=== PATIENT | male | born 1955 | race Caucasian/White ===

== ENCOUNTER 2024-02-12 13:40 | Observation (INO) | payer OTHER, SELFPAY ==
[2024-02-12 13:54] VITALS: BP 113/70; PULSE 65; RESP 18; TEMP 36.6; O2SAT 97; BMI 32.1
--- NOTE | 2024-02-12 15:59 | ED_ITS ---
HPI - Neck Pain/Injury General Time Seen by Provider: 15:59 Date Seen: 02/12/24 Chief Complaint: Neck Injury/Pain Stated Complaint: Stiffness in neck Time Seen by Provider: 02/12/24 15:56 Source: patient and RN notes reviewed Mode of arrival: ambulatory Limitations: no limitations History of Present Illness HPI Narrative: This 69-year-old male with underlying Parkinson's is coming into the ER with neck pain. It is primarily on his left side and goes into the left head. He states the top of the scalp has maybe a numb tingly feeling to it at times. He did fall about 2 weeks ago but current symptoms did not start until about 3 days ago. He states he can no longer turn his head, had significant difficulty trying to sit up out of bed as it hurt in his neck to sit up. Pain is not going into his arms, no numbness tingling into his arms, no pain radiating into his arms. He states it even hurts to put on his baseball cap. He has not noticed a rash, he has had no fevers or chills, no night sweats. He does ambulate with a walker. They do tell me that they need to leave by 530, I am seen him at 4:00 a.m. at the beginning of my shift. There was significant volume and acuity in the ED, longer wait times at this moment. Have reviewed with them that I will do what I can but I do not no that I will have him out of here at 5:30 a.m.. They want to know if he stays, his can come pick him up in the morning. Reviewed with them that I cannot give them any indication at this time, if he does not meet criteria for any admission, will not need to stay. He notes his appetite has been down, no nausea or vomiting just not hungry. His states he is really not eating right now. He denies any abdominal pain. He is drinking water but she states he will often have T your milk during the day and is just really drinking water. He feels he is drinking adequate water in there is no issue with that. He states he is just not hungry. complaint: neck pain Related Data Home Medications ?Medication ?Instructions ?Recorded ?Confirmed acyclovir 400 mg tablet mg PO 02/12/24 amlodipine 10 mg tablet 10 mg PO DAILY 02/12/24 02/12/24 bupropion HCl 300 mg 24 hr tablet, 300 mg PO DAILY 02/12/24 02/12/24 extended release carbidopa 25 mg-levodopa 100 mg tab PO 02/12/24 tablet cyanocobalamin (vitamin B-12) 1,000 mcg PO DAILY 02/12/24 02/12/24 1,000 mcg tablet escitalopram oxalate 10 mg tablet 10 mg PO DAILY 02/12/24 02/12/24 furosemide 20 mg tablet mg PO 02/12/24 omeprazole 40 mg capsule,delayed 40 mg PO DAILY 02/12/24 02/12/24 release propranolol 120 mg capsule,24 120 mg PO DAILY 02/12/24 02/12/24 hr,extended release rosuvastatin 20 mg tablet 20 mg PO QPM 02/12/24 02/12/24 Allergies Allergy/AdvReac Type Severity Reaction Status Date / Time ramipril Allergy Severe Anaphylaxis Verified 02/12/24 19:15 Review of Systems Status of ROS: Reports: 6 or more systems reviewed and unremarkable except as noted in History and below [facility] Medical History (Updated 02/12/24 @ 20:31 by Feroz Estrada MD) Depression ?F32.A - Depression, unspecified (ICD-10) Alcohol use disorder ?F10.90 - Alcohol use, unspecified, uncomplicated (ICD-10) Coronary artery disease ?I25.10 - Atherosclerotic heart disease of [place] coronary artery without angina pectoris (ICD-10) Herpes keratitis of left eye ?B00.52 - Herpesviral keratitis (ICD-10) Sleep apnea ?G47.30 - Sleep apnea, unspecified (ICD-10) TIA (transient ischemic attack) ?G45.9 - Transient cerebral ischemic attack, unspecified (ICD-10) Hyperlipidemia ?E78.5 - Hyperlipidemia, unspecified (ICD-10) Hypertension ?I10 - Essential (primary) hypertension (ICD-10) Parkinson's disease ?G20.A1 - Parkinson's disease without dyskinesia, without mention of fluctuations (ICD-10) Surgical History (Updated 02/12/24 @ 20:21 by Feroz Estrada MD) History of esophagogastroduodenoscopy (EGD) ?Z98.890 - Other specified postprocedural states (ICD-10) Family History (Updated 10/25/24 @ 20:21 by Feroz Estrada MD) Mother High blood pressure Father High blood pressure Social History (Updated 02/12/24 @ 20:23 by Feroz Estrada MD) Narrative: He lives with his . is healthcare power of assistant city attorney. He is a former smoker having quit about 5 years ago he reports drinking alcohol approximately 2-3 drinks per day until about 2 weeks ago when he quit with the recommendation of his . Code status is DNR What is your current living situation?: I presently have a place to live Problems where you live: no known problems Problems where you live details: None In the past 12 months, utilities in danger of being shut off: no In past 12 months, lack of transportation kept you from medical appts, meetings, work, or getting things needed for daily living: no In the past 12 mos, have been you worried that your food would run out before you had money to buy more?: never true In the past 12 mos, the food you bought just didn't last and you didn't have money to buy more?: never true Highest level of school completed/degree received: high school graduate Smoking Status: Former smoker What tobacco products do you use: cigars Do you use any of these nicotine containing products: None Second hand tobacco smoke exposure: No How often do you have a drink containing alcohol: never How often do you have six or more drinks on one occasion: Never AUDIT-C Alcohol total score: 0 Non-prescribed substance use: denies use Caffeine: No How often does anyone, including family, friends and others, physically hurt you : never How often does anyone, including family, friends and others, insult or talk down to you: never How often does anyone, including family, friends and others, threaten you with harm: never How often does anyone, including family, friends and others, scream or curse at you: never service: No Exam Const: Vital Signs, click to edit/add: Vital Signs - 24 hr 02/12/24 13:54 Temperature 97.8 F Pulse Rate [Pulse Oximeter] 65 Respiratory Rate 18 Blood Pressure [Ri ght Upper Arm] 113/70 Pulse Oximetry 97 Oxygen Delivery Me thod Room Air This 69-year-old male is alert, interactive, no apparent distress. He is sitting up in the bed in exam room 1. Pupils are equal round reactive, sclera clear, symmetrical facial function. Speech is normal, maybe slower but certainly succinct and able to speak in complete sentences. He has no midline tenderness of his neck, does not want to rotate or flex or extend his neck at all. He has some tenderness over the left occipital ridge, none on the right. There does not seem to be significant paraspinous tenderness in the cervical spine. Certainly has no neck masses, no adenopathy. He does complain of pain when I palpate along his sternocleidomastoid muscles on both sides. His strength in his upper arms through the shoulders, elbows and hands is 5/5 and symmetric. Normal light touch sensation. He does have 1 beat of clonus bilaterally at the wrist/hands. He does have a flapping type tremor in his hands when I have him hold his arms outstretched. CV regular rate and rhythm, no murmur, normal S1-S2, no S3-S4. Lungs are clear, no tachypnea, no wheezing or crackles. Abdomen is soft, nontender, nondistended, no organomegaly, no rebound or guarding, no masses noted. Did inspect his scalp, see no rash, on palpation of his scalp he does not have any paresthesias or dysesthesias. Documenting provider has reviewed patient's vital signs: yes Course Course ED Course: This 69-year-old male with underlying Parkinson's and remote fall is coming in with increasing neck pain. With a being left-sided, pain over the occipital ridge in pain going into the head, occipital neuralgia does seem to be a possibility. He has fallen remotely, do think we need to do head and neck imaging with CT imaging. He has no pain going into his arms, does not seem to be a radiculopathy. He is on a cholesterol medicine, will get a baseline screening CK. He is also complaining of decreased appetite, could have an underlying subtle viral syndrome going on. We will get full complement of labs into the CT imaging. Reevaluation(s) Time of Reevaluation #1: 17:29 Reevaluation #1: Spoke with patient and his . Reviewed that the head CT and neck CT are showing no acute traumatic change, no acute findings. There are degenerative changes including in the cervical spine. Patient has not really tried any Tylenol at all for this. He did try some ice at 1 point. We did review that his glucose is 266 which qualifies him for diabetes. He has been told he was prediabetic, he remembers being on metformin at 1 point, is not sure why he isn't any longer. His kidney function looks reasonable to initiate this. He would consider this. Time of Reevaluation #2: 17:48 Reevaluation #2: Sed rate has come back elevated at 82, C reactive protein at 8.7. Patient denies any visual changes but on further questioning about eating, he does admit that he had some right jaw pain, does not think it was just in his teeth when he recently tried to eat. This is concerning for potential jaw claudication. Given that this might be polymyalgia rheumatica, recommend initiation of steroids which is likely going to causes havoc with sugars and patient has no diabetic management at this point. Did call and talk to our hospitalist Dr. Estrada. He does agree to take this patient. I think it is prudent. Patient's noted that when she attempted to just get him up to get his shirt on, she had ask for assistance as he was screaming out in pain. Will initiate some Tylenol, see if scheduled Tylenol and initiation of 20 mg of prednisone will help with his symptoms. Dr. Estrada will address his diabetes. We did discuss muscle relaxants but there are interactions that can happen based on age as well as with his Parkinson's and his Parkinson's medications. Using Zanaflex with his Sinemet can increase somnolence, confusion, dizziness. This certainly could increase risk of falls in somebody that is already at a heightened risk due to his Parkinson's. Likewise narcotic pain medicines could potentiate his fall risk. I think it is prudent to put this patient in the hospital, work on pain management if needed and initiate diabetic treatment. Vital Signs Vital signs: Initial Vital Signs Temperature 97.8 F 02/12/24 13:54 Temperature Source Temporal Artery Scan 02/12/24 13:54 Pulse Rate 65 02/12/24 13:54 Respiratory Rate 18 02/12/24 13:54 Blood Pressure 113/70 02/12/24 13:54 Blood Pressure Mean 84 02/12/24 13:54 Blood Pressure Position Sitting 02/12/24 13:54 Pulse Oximetry 97 02/12/24 13:54 Oxygen Delivery Method Room Air 10/25/24 13:54 Vital Signs Temperature 97.8 F 02/12/24 13:54 Pulse Rate 65 02/12/24 13:54 Respiratory Rate 18 02/12/24 13:54 Blood Pressure 113/70 02/12/24 13:54 Pulse Oximetry 97 02/12/24 13:54 Oxygen Delivery Method Room Air 02/12/24 13:54 Temperature 98.2 F 02/12/24 23:00 Pulse Rate 74 02/12/24 23:00 Respiratory Rate 16 02/12/24 23:00 Blood Pressure 127/70 02/12/24 23:00 Pulse Oximetry 97 02/12/24 23:00 Oxygen Delivery Method Room Air 02/12/24 23:00 Medications Administered Medications: Generic Name Dose Route Start Last Admin Trade Name Freq PRN Reason Stop Dose Admin Acyclovir 400 mg 02/12/24 21:00 02/12/24 21:01 Acyclovir 200 Mg Capsule PO 400 mg BID RUDDY Administration Carbidopa/Levodopa 2 tab 02/12/24 21:00 02/12/24 21:01 Carbidopa-Levodopa 25-100 Tablet PO 2 tab QID RUDDY Administration Ibuprofen 400 mg 02/12/24 18:28 02/12/24 19:43 Ibuprofen 400 Mg Tablet PO 400 mg Q4H PRN Administration Insulin Aspart 0 unit 02/12/24 21:00 02/12/24 21:03 Insulin Aspart 100 Unit/Ml SUBCUT 6 unit ACHS RUDDY Administration Protocol Metformin HCl 500 mg 02/12/24 18:35 02/12/24 19:44 Metformin Er 500 Mg PO 500 mg BIDWM RUDDY Administration Sodium Chloride 5 ml 02/12/24 21:00 02/12/24 21:09 Sodium Chloride 0.9 % (Flush) 10 Ml Syringe IVF Not Given BID RUDDY Discontinued Medications Generic Name Dose Route Start Last Admin Trade Name Freq PRN Reason Stop Dose Admin Acetaminophen 1,000 mg 02/12/24 17:42 02/12/24 17:48 Acetaminophen 500 Mg Tablet PO 02/12/24 17:43 1,000 mg ONCE ONE Administration Prednisone 20 mg 02/12/24 17:42 02/12/24 17:48 Prednisone 20 Mg Tablet PO 02/12/24 17:43 20 mg ONCE ONE Administration MDM - Neck Pain/Injury Lab Data Attestation: I reviewed the patient's lab results. Labs: Lab Results 02/12/24 Range/Units 16:24 WBC 11.76 H (4.50-11.00) K/uL RBC 4.14 L (4.30-5.90) m/uL Hgb 12.3 L (13.5-17.5) gm/dL Hct 39.2 (37.0-53.0) % MCV 95 (80-100) fL MCH 30 (26-34) pg MCHC 31 L (32-36) gm/dL RDW Coeff of Javid 16.4 H (11.5-15.5) % Plt Count 253 (140-440) K/uL Neut % (Auto) 69.1 (42.0-72.0) % Lymph % (Auto) 16.1 L (20-44) % [place] % (Auto) 13.4 H (0.0-11.0) % Eos % (Auto) 0.9 (0.0-7.0) % Baso % (Auto) 0.1 (0.0-3.0) % Neut # (Auto) 8.10 H (1.7-7.0) K/uL Lymph # (Auto) 1.90 (0.90-2.90) K/uL [place] # (Auto) 1.60 H (0.00-0.90) K/UL Eos # (Auto) 0.10 (0.00-0.50) K/uL Baso # (Auto) 0.00 (0.00-0.30) K/uL Abs Immat Gran (auto) 0.00 (0.00-0.30) K/uL Imm/Tot Granulo (auto) 0.4 % ESR 82 H (2-15) mm/hr Sodium 136 (135-149) mmol/L Potassium 4.6 (3.6-5.1) mmol/L Chloride 95 L (96-114) mmol/L Carbon Dioxide 29 (20-32) mmol/L Anion Gap 12 (7-15) mEq/L BUN 16 (7-30) mg/dL Creatinine 1.0 (0.5-1.5) mg/dL Estimated Creat Clear 82.20 Estimated GFR 82 ml/min Glucose 266 H (60-115) mg/dL Calcium 10.2 (8.4-10.6) mg/dL Total Bilirubin 1.0 (0.1-1.5) mg/dL AST 22 (12-35) U/L ALT 10 (4-50) U/L Alkaline Phosphatase 98 (40-150) U/L Total Creatine Kinase 54 (54-186) U/L C-Reactive Protein 8.7 H (0.5-1.0) mg/dL Total Protein 9.0 H (6.0-8.3) g/dL Albumin 4.7 (3.3-5.0) g/dL Imaging Data CT scan - head: Attestation: I have reviewed the pertinent imaging results. Radiologist's impression: Patient: DINESH MCCLELLAN Facility:?[facility] Patient ID:?[id number] Site Patient ID:?[id number]. Site :?[id number] Study:?CT-Head w/o-02/12/2024 4:52:19 PM Ordering Physician:Magalys Mix Final Report: INDICATION: Left-sided head pain. TECHNIQUE: Head CT without contrast. COMPARISON: None. FINDINGS: CSF spaces: Cmnh-[id number]-etooozem diffuse parenchymal volume loss with commensurate ex vacuo dilatation of the ventricles and sulci. Brain parenchyma and extra-axial spaces: There are nonspecific low attenuation white matter changes consistent with chronic microvascular disease. No sign of mass, hemorrhage, or midline shift. Skull base and calvarium: The visualized paranasal sinuses and mastoid air cells demonstrate no acute or significant findings. The visualized orbits are grossly unremarkable. No skull fractures. IMPRESSION: No acute findings. Please note that all CT scans at this facility use dose modulation, iterative reconstruction, and/or weight-based dosing when appropriate to reduce radiation dose to as low as reasonably achievable. Dictated by Ramos Salomon MD @ 02/12/2024 5:13:04 PM (Electronic Signature) CT cervical spine: Attestation: I have reviewed the pertinent imaging results. Radiologist's impression: Patient: DINESH MCCLELLAN Facility:?[facility] RIS Patient ID:?[id number] Site Patient ID:?[id number]. Site :?[id number] Study:?CT-Spine Cervical W/O-02/12/2024 4:52:00 PM Ordering Physician:Magalys Mix Final Report: INDICATION: left neck pain, goes into left head, pain with movement. TECHNIQUE: CT cervical spine without contrast. COMPARISON: None. FINDINGS: Vertebrae: Alignment is normal. Straightened cervical lordosis. There are no fractures or suspicious bony lesions. Discs and facet joints: There are degenerative disc changes most severe at C5-6 and C6-7 with bulky bridging anterior osteophytosis. There are multilevel degenerative changes in the facets. Extraspinal findings: Paraspinous soft tissues are unremarkable. IMPRESSION: 1. No sign of acute injury. 2. Multilevel degenerative spondylosis. Please note that all CT scans at this facility use dose modulation, iterative reconstruction, and/or weight-based dosing when appropriate to reduce radiation dose to as low as reasonably achievable. Dictated by Ramos Salomon MD @ 02/12/2024 5:07:19 PM (Electronic Signature) Discharge Plan Discharge Clinical Impression: Acquired torticollis, Parkinson's disease, Type 2 diabetes mellitus Patient Disposition: Admitted As Observation
--- NOTE | 2024-02-12 16:06 | CRLHL7_ITS ---
For Patients: As a result of the Century Cures Act, medical imaging exams and procedure reports are released immediately into your electronic medical record. You may view this report before your referring provider. If you have questions, please contact your health care provider. INDICATION: Left-sided head pain. TECHNIQUE: Head CT without contrast. COMPARISON: None. FINDINGS: CSF spaces: [id number]-bk-ergyebeg diffuse parenchymal volume loss with commensurate ex vacuo dilatation of the ventricles and sulci. Brain parenchyma and extra-axial spaces: There are nonspecific low attenuation white matter changes consistent with chronic microvascular disease. No sign of mass, hemorrhage, or midline shift. Skull base and calvarium: The visualized paranasal sinuses and mastoid air cells demonstrate no acute or significant findings. The visualized orbits are grossly unremarkable. No skull fractures. IMPRESSION: No acute findings. Please note that all CT scans at this facility use dose modulation, iterative reconstruction, and/or weight-based dosing when appropriate to reduce radiation dose to as low as reasonably achievable. Dictated by Ramos Salomon MD @ 02/12/2024 5:13:04 PM (Electronically Signed)
--- NOTE | 2024-02-12 16:07 | CRLHL7_ITS ---
For Patients: As a result of the Century Cures Act, medical imaging exams and procedure reports are released immediately into your electronic medical record. You may view this report before your referring provider. If you have questions, please contact your health care provider. INDICATION: left neck pain, goes into left head, pain with movement. TECHNIQUE: CT cervical spine without contrast. COMPARISON: None. FINDINGS: Vertebrae: Alignment is normal. Straightened cervical lordosis. There are no fractures or suspicious bony lesions. Discs and facet joints: There are degenerative disc changes most severe at C5-6 and C6-7 with bulky bridging anterior osteophytosis. There are multilevel degenerative changes in the facets. Extraspinal findings: Paraspinous soft tissues are unremarkable. IMPRESSION: 1. No sign of acute injury. 2. Multilevel degenerative spondylosis. Please note that all CT scans at this facility use dose modulation, iterative reconstruction, and/or weight-based dosing when appropriate to reduce radiation dose to as low as reasonably achievable. Dictated by Ramos Salomon MD @ 02/12/2024 5:07:19 PM (Electronically Signed)
[2024-02-12 16:30] LABS: Basophils Percent Auto 0.1 % (0.0-3.0); Eosinophils Percent Auto 0.9 % (0.0-7.0); Hematocrit 39.2 % (37.0-53.0); Hemoglobin* 12.3 gm/dL (13.5-17.5); Immature Granulocytes Pct Auto 0.4 %; Lymphocytes Percent Auto 16.1 % (20-44); Mean Corpuscular HGB Conc 31 gm/dL (32-36); Mean Corpuscular Hemoglobin 30 pg (26-34); Mean Corpuscular Volume 95 fL (80-100); Monocytes Percent Auto 13.4 % (0.0-11.0); Neutrophils Percent Auto 69.1 % (42.0-72.0); Platelet Count* 253 K/uL (140-440); RDW Coefficient of Variation % 16.4 % (11.5-15.5); Red Blood Count 4.14 m/uL (4.30-5.90); White Blood Count* 11.76 K/uL (4.50-11.00)
[2024-02-12 16:40] LABS: Slide Review Reflex No
[2024-02-12 16:43] LABS: Chloride* 95 mmol/L (96-114)
[2024-02-12 16:44] LABS: Albumin* 4.7 g/dL (3.3-5.0); Potassium* 4.6 mmol/L (3.6-5.1); Sodium* 136 mmol/L (135-149)
[2024-02-12 16:46] LABS: Estimated Glomerular Filt Rate 82 ml/min
[2024-02-12 16:47] LABS: Alanine Aminotransferase* 10 U/L (4-50); Alkaline Phosphatase* 98 U/L (40-150); Anion Gap 12 mEq/L (7-15); Aspartate Amino Transferase* 22 U/L (12-35); Blood Urea Nitrogen* 16 mg/dL (7-30); Calcium* 10.2 mg/dL (8.4-10.6); Carbon Dioxide* 29 mmol/L (20-32); Creatine Kinase* 54 U/L (54-186); Glucose* 266 mg/dL (60-115)
[2024-02-12 16:50] LABS: C Reactive Protein* 8.7 mg/dL (0.5-1.0)
[2024-02-12 17:19] LABS: Erythrocyte SedimentationRate* 82 mm/hr (2-15)
[2024-02-12] MEDS: predniSONE 20 MG TABLET PO (17:48)
[2024-02-12] MEDS: ACETAMINOPHEN 500 MG TABLET 1000 MG PO (17:48)
[2024-02-12 18:37] VITALS: BP 139/68; PULSE 74; TEMP 36.9; BMI 31.2
[2024-02-12 19:00] VITALS: BP 139/68; PULSE 71; RESP 18; TEMP 36.9; O2SAT 94
[2024-02-12] MEDS: IBUPROFEN 400 MG TABLET PO (19:43)
[2024-02-12] MEDS: METFORMIN ER 500 MG PO (19:44)
--- NOTE | 2024-02-12 20:13 | P.IMHP_ITS ---
Hospitalist- H&P: HPI History of Present Illness Date Seen: 02/12/24 Chief complaint: Stiffness in neck Narrative: Andreas Lema is a 69 year old male with Parkinson's and diabetes admitted through the emergency department with a 3-4 day history of worsening bilateral neck pain. He reports he was in his usual state of health when he started having bilateral neck pain at the base of his posterior neck extending to the base of his posterior skull. He did not have any injury the trigger this. He has not been ill. He has not had a fever, sore throat, headache. No previous history of neck problems. The pain is constant and gradually getting worse over the last few days. Nothing seems to make it better worse. Did not noticed that it was worse in the morning. He has not had any visual disturbance. 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 He does not have jaw claudication. He does report a decreased appetite for last few days. No abdominal pain, nausea, vomiting, diarrhea, blood in his stool Review of Systems Narrative: Review of systems unremarkable except as noted above [facility] Medical History (Updated 02/12/24 @ 20:31 by Feroz Estrada MD) Depression ?F32.A - Depression, unspecified (ICD-10) Alcohol use disorder ?F10.90 - Alcohol use, unspecified, uncomplicated (ICD-10) Coronary artery disease ?I25.10 - Atherosclerotic heart disease of [place] coronary artery without angina pectoris (ICD-10) Herpes keratitis of left eye ?B00.52 - Herpesviral keratitis (ICD-10) Sleep apnea ?G47.30 - Sleep apnea, unspecified (ICD-10) TIA (transient ischemic attack) ?G45.9 - Transient cerebral ischemic attack, unspecified (ICD-10) Hyperlipidemia ?E78.5 - Hyperlipidemia, unspecified (ICD-10) Hypertension ?I10 - Essential (primary) hypertension (ICD-10) Parkinson's disease ?G20.A1 - Parkinson's disease without dyskinesia, without mention of fluctuations (ICD-10) Surgical History (Updated 02/12/24 @ 20:21 by Feroz Estrada MD) History of esophagogastroduodenoscopy (EGD) ?Z98.890 - Other specified postprocedural states (ICD-10) Family History (Updated 02/12/24 @ 20:21 by Feorz Estrada MD) Mother High blood pressure Father High blood pressure Social History (Updated 02/12/24 @ 20:23 by Feroz Estrada MD) Narrative: He lives with his . is healthcare power of attorney general. He is a former smoker having quit about 5 years ago he reports drinking alcohol approximately 2-3 drinks per day until about 2 weeks ago when he quit with the recommendation of his . Code status is DNR What is your current living situation?: I presently have a place to live Problems where you live: no known problems Problems where you live details: None In the past 12 months, utilities in danger of being shut off: no In past 12 months, lack of transportation kept you from medical appts, meetings, work, or getting things needed for daily living: no In the past 12 mos, have been you worried that your food would run out before you had money to buy more?: never true In the past 12 mos, the food you bought just didn't last and you didn't have money to buy more?: never true Highest level of school completed/degree received: high school graduate Smoking Status: Former smoker What tobacco products do you use: cigars Do you use any of these nicotine containing products: None Second hand tobacco smoke exposure: No How often do you have a drink containing alcohol: never How often do you have six or more drinks on one occasion: Never AUDIT-C Alcohol total score: 0 Non-prescribed substance use: denies use Caffeine: No How often does anyone, including family, friends and others, physically hurt you : never How often does anyone, including family, friends and others, insult or talk down to you: never How often does anyone, including family, friends and others, threaten you with harm: never How often does anyone, including family, friends and others, scream or curse at you: never service: No Meds Home Medications and Allergies Home Medications ?Medication ?Instructions ?Recorded ?Confirmed ?Type acyclovir 400 mg tablet mg PO 02/12/24 History amlodipine 10 mg tablet 10 mg PO DAILY 02/12/24 02/12/24 History bupropion HCl 300 mg 24 hr tablet, 300 mg PO DAILY 02/12/24 02/12/24 History extended release carbidopa 25 mg-levodopa 100 mg tab PO 02/12/24 History tablet cyanocobalamin (vitamin B-12) 1,000 mcg PO DAILY 02/12/24 02/12/24 History 1,000 mcg tablet escitalopram oxalate 10 mg tablet 10 mg PO DAILY 02/12/24 02/12/24 History furosemide 20 mg tablet mg PO 02/12/24 History omeprazole 40 mg capsule,delayed 40 mg PO DAILY 02/12/24 02/12/24 History release propranolol 120 mg capsule,24 120 mg PO DAILY 02/12/24 02/12/24 History hr,extended release rosuvastatin 20 mg tablet 20 mg PO QPM 02/12/24 02/12/24 History Allergies Allergy/AdvReac Type Severity Reaction Status Date / Time ramipril Allergy Severe Anaphylaxis Verified 02/12/24 19:15 Exam Narrative: Exam Narrative: He is alert and appears in no distress. He gives his own history. Head is without evidence of trauma. Eyes normal. Oropharynx is normal. There is no facial asymmetry. He has almost no movement in his neck with flexion extension rotation secondary to pain in the back of his neck. Inspection of his neck shows no rash, redness or sign of trauma. Palpation there shows diffusely tender and tight posterior cervical muscles extending from the base of the occiput down to the trapezius muscles bilaterally. Respirations are clear to auscultation. Cardiovascular: S1, S2, regular rate and rhythm. Upper extremities with intact strength, sensation, motion and pulses bilaterally. Abdomen is soft without tenderness or mass. External genitalia normal. Lower extremities with diminished sensation (chronic) and diminished pulses. No erythema. No edema. He moves both lower extremities well. Const: Vital Signs, click to edit/add: Vital Signs - 24 hr 02/12/24 13:54 02/12/24 18:37 Temperature 97.8 F 98.4 F Pulse Rate [Pulse Oximeter] 65 74 Respiratory Rate 18 Blood Pressure [Ri ght Arm] 139/68 Blood Pressure [Ri ght Upper Arm] 113/70 Pulse Oximetry 97 Oxygen Delivery Me thod Room Air Documenting provider has reviewed patient's vital signs: yes Hospitalist - H&P: Result Labs Labs: Short CBC 02/12/24 Range/Units 16:24 WBC 11.76 H (4.50-11.00) K/uL Hgb 12.3 L (13.5-17.5) gm/dL Hct 39.2 (37.0-53.0) % Plt Count 253 (140-440) K/uL BMP 02/12/24 16:24 Sodium 136 Potassium 4.6 Chloride 95 L Carbon Dioxide 29 BUN 16 Creatinine 1.0 Glucose 266 H Calcium 10.2 Cardiac Enzymes 02/12/24 Range/Units 16:24 Total Creatine Kinase 54 (54-186) U/L Liver Function 02/12/24 Range/Units 16:24 Total Bilirubin 1.0 (0.1-1.5) mg/dL AST 22 (12-35) U/L ALT 10 (4-50) U/L Alkaline Phosphatase 98 (40-150) U/L Albumin 4.7 (3.3-5.0) g/dL Imaging CT scan - head: Radiologist's impression: INDICATION: Left-sided head pain. TECHNIQUE: Head CT without contrast. COMPARISON: None. FINDINGS: CSF spaces: [id number] diffuse parenchymal volume loss with commensurate ex vacuo dilatation of the ventricles and sulci. Brain parenchyma and extra-axial spaces: There are nonspecific low attenuation white matter changes consistent with chronic microvascular disease. No sign of mass, hemorrhage, or midline shift. Skull base and calvarium: The visualized paranasal sinuses and mastoid air cells demonstrate no acute or significant findings. The visualized orbits are grossly unremarkable. No skull fractures. IMPRESSION: No acute findings. Cervical spine CT: Radiologist's impression: INDICATION: left neck pain, goes into left head, pain with movement. TECHNIQUE: CT cervical spine without contrast. COMPARISON: None. FINDINGS: Vertebrae: Alignment is normal. Straightened cervical lordosis. There are no fractures or suspicious bony lesions. Discs and facet joints: There are degenerative disc changes most severe at C5-6 and C6-7 with bulky bridging anterior osteophytosis. There are multilevel degenerative changes in the facets. Extraspinal findings: Paraspinous soft tissues are unremarkable. IMPRESSION: 1. No sign of acute injury. 2. Multilevel degenerative spondylosis. Assessment and Plan Assessment and plan (1) Acquired torticollis: Problem comment: Unclear if this is PMR or non inflammatory neck pain. Has underlying degenerative cervical spine disease Status: Acute (2) Parkinson's disease: Status: Acute (3) Type 2 diabetes mellitus: Problem comment: Not currently treated. With prednisone will start metformin and monitor blood sugars Status: Acute (4) PMR (polymyalgia rheumatica): Problem comment: Bilateral neck pain with marked elevation of inflammatory markers suspicious for PMR. No signs or symptoms suggestive of giant cell arteritis. Trial of prednisone Status: Suspected Plan Patient admitted to the hospital for ongoing evaluation of neck pain, possible PMR, diabetes. Anticipate discharge to home tomorrow with close outpatient follow-up depending on clinical course. Total Time Spent Total Time Spent: Total time spent is 60 minutes in coordination of care and discussing with patient and other providers ongoing evaluation management
[2024-02-12] MEDS: CARBIDOPA-LEVODOPA 25-100 TABLET 2 TAB PO (21:01)
[2024-02-12] MEDS: ACYCLOVIR 200 MG CAPSULE 400 MG PO (21:01)
[2024-02-12] MEDS: INSULIN ASPART 100 UNIT/ML SUBCUT (21:03)
--- NOTE | 2024-02-12 22:21 | PC.NURSE ---
Pt arrived on unit at approx. 182. VSS. A&O. On observation for pain and stiffness in neck that started approx. 3 days ago. Rates pain at a 8/10 with change in position and standing up. No IV inserted.
[2024-02-12 23:00] VITALS: BP 127/70; PULSE 74; RESP 16; TEMP 36.8; O2SAT 97
[2024-02-13 03:00] VITALS: BP 126/68; PULSE 71; RESP 16; TEMP 36.2; O2SAT 96
[2024-02-13 06:54] LABS: Basophils Percent Auto 0.1 % (0.0-3.0); Eosinophils Percent Auto 0.1 % (0.0-7.0); Hematocrit 35.4 % (37.0-53.0); Hemoglobin* 11.1 gm/dL (13.5-17.5); Immature Granulocytes Pct Auto 0.2 %; Lymphocytes Percent Auto 14.4 % (20-44); Mean Corpuscular HGB Conc 31 gm/dL (32-36); Mean Corpuscular Hemoglobin 30 pg (26-34); Mean Corpuscular Volume 94 fL (80-100); Monocytes Percent Auto 9.5 % (0.0-11.0); Neutrophils Percent Auto 75.7 % (42.0-72.0); Platelet Count* 234 K/uL (140-440); RDW Coefficient of Variation % 16.2 % (11.5-15.5); Red Blood Count 3.75 m/uL (4.30-5.90); White Blood Count* 11.73 K/uL (4.50-11.00)
[2024-02-13 07:00] VITALS: BP 127/70; PULSE 64; RESP 18; TEMP 36.7; O2SAT 97
[2024-02-13 07:00] LABS: Slide Review Reflex No
[2024-02-13 07:08] LABS: Chloride* 99 mmol/L (96-114)
[2024-02-13 07:09] LABS: Potassium* 3.8 mmol/L (3.6-5.1); Sodium* 137 mmol/L (135-149)
[2024-02-13 07:11] LABS: Creatinine* 0.9 mg/dL (0.5-1.5); Estimated Glomerular Filt Rate 93 ml/min
[2024-02-13 07:12] LABS: Anion Gap 12 mEq/L (7-15); Blood Urea Nitrogen* 17 mg/dL (7-30); Calcium* 9.6 mg/dL (8.4-10.6); Carbon Dioxide* 26 mmol/L (20-32); Glucose* 248 mg/dL (60-115)
[2024-02-13 07:27] LABS: C Reactive Protein* 14.3 mg/dL (0.5-1.0)
--- NOTE | 2024-02-13 08:17 | PC.NURSE ---
Shift note ([id number]): Patient pleasant, alert and oriented. Remained in bed all shift and slept well during night. Denied pain. ?
[2024-02-13] MEDS: CARBIDOPA-LEVODOPA 25-100 TABLET 2 TAB PO ×2 (09:08→13:07)
[2024-02-13] MEDS: OMEPRAZOLE 20 MG CAPSULE DR 40 MG PO (09:09)
[2024-02-13] MEDS: predniSONE 20 MG TABLET PO (09:09)
[2024-02-13] MEDS: glipiZIDE XL 5 MG TAB PO (09:09)
[2024-02-13] MEDS: METFORMIN ER 500 MG PO (09:09)
[2024-02-13] MEDS: FUROSEMIDE 20 MG TABLET PO (09:10)
[2024-02-13] MEDS: IBUPROFEN 400 MG TABLET PO (09:11)
[2024-02-13] MEDS: buPROPion XL 150 MG TABLET 300 MG PO (09:11)
[2024-02-13] MEDS: AMLODIPINE 10 MG TABLET PO (09:11)
[2024-02-13] MEDS: CYANOCOBALAMIN (VITAMIN B-12) 500 MCG TABLET 1000 MCG PO (09:11)
[2024-02-13] MEDS: ACYCLOVIR 200 MG CAPSULE 400 MG PO (09:13)
[2024-02-13] MEDS: ESCITALOPRAM 10 MG TABLET 5 MG PO (09:22)
[2024-02-13] MEDS: INSULIN ASPART 100 UNIT/ML SUBCUT ×2 (09:26→13:03)
[2024-02-13] MEDS: SENNOSIDES/DOCUSATE TABLET PO (09:26)
[2024-02-13 11:00] VITALS: BP 115/61; PULSE 67; RESP 16; TEMP 36.6; O2SAT 95
[2024-02-13 11:05] LABS: Appearance Urine Clear (Clear); Bilirubin Urine Negative (Negative); Blood Urine Negative (Negative); Color Urine Dark yellow (Yellow); Glucose Urine 2+ (Negative); Ketones Urine Negative (Negative); Leukocyte Esterase Urine Negative (Negative); Nitrite Urine Negative (Negative); Protein Urine 2+ (Negative); Specific Gravity Urine >= 1.030 (1.000-1.030)
[2024-02-13 11:16] LABS: RBC Urine 0-2 (0-2); WBC Urine 0-2 (0-5)
[2024-02-13 11:17] LABS: Mucus Urine Few; Squamous Epithelial Cell Urine Few (None-Few)
--- NOTE | 2024-02-13 13:37 | P.DS_ITS ---
DS: Providers Provider Date Seen: 02/13/24 Date of admission: 02/12/24 18:10 Primary care physician: SOLOMON Baker Admitting Clinician: Feroz Estrada MD Attending Physician on discharge: Feroz Estrada MD Date of Discharge: 02/13/24 DS: Diagnosis Discharge Diagnosis (1) Acquired torticollis: Status: Acute Problem details: Unclear if this is PMR or non inflammatory neck pain. Has underlying degenerative cervical spine disease (2) PMR (polymyalgia rheumatica): Status: Suspected Problem details: Bilateral neck pain with marked elevation of inflammatory markers suspicious for PMR. No signs or symptoms suggestive of giant cell arteritis. Trial of prednisone (3) Type 2 diabetes mellitus: Status: Acute Problem details: Not currently treated. With prednisone will start metformin and monitor blood sugars (4) Parkinson's disease: Status: Acute (5) Alcohol use disorder: Status: Acute Problem details: History of excessive alcohol use. He reports his made him stop drinking about 2 weeks ago after he fell at home DS: Summary Hospital Course Hospital Course: 69-year-old male admitted to the hospital with bilateral posterior neck pain for 3-4 days prior to admission. No other symptoms of illness. At the time of admission he was noted to have elevated inflammatory markers. His clinical presentation and inflammatory markers suggested possible polymyalgia rheumatica. No signs or symptoms of temporal arteritis/GCA. Started on prednisone 20 mg yesterday. Because of concomitant diabetes he was admitted to the hospital so blood sugars could be monitored well initiating prednisone. Overnight he had moderate improvement in his pain in his neck. He has had improvement in the range of motion that he can do in his neck and improvement in the tenderness over his posterior neck. Blood sugars have been moderately elevated with the addition of metformin ER 1000 mg daily and glipizide ER 5 mg daily. He will be discharged to home with his today. I have discharged him with a prescription for a glucose monitor so we can do monitoring at home for his diabetes. I have continued his same home medications with the addition of prednisone 15 mg daily, glipizide 5 mg daily and metformin 1000 mg daily to address his hyperglycemia. He will need follow-up in the next week to reassess management is diabetes and his neck pain. Consider further evaluation for polymyalgia rheumatica verses torticollis of other causes for ongoing treatment. Time Spent with Patient Time attestation: Total time spent providing and/or coordinating discharge services: 40 minutes Exam Narrative: Exam Narrative: He is alert in no distress. Range of motion is neck is improved from essentially no motion yesterday to about 20? of lateral rotation in both directions 30? of forward flexion and extension. Palpation shows significant improvement in the tenderness over his posterior cervical spine, paraspinal muscles. Const: Vital Signs, click to edit/add: Vital Signs - 24 hr 02/12/24 13:54 02/12/24 18:37 02/12/24 19:00 Temperature 97.8 F 98.4 F 98.4 F Pulse Rate [Pulse Oximeter] 65 74 71 Respiratory Rate 18 18 Blood Pressure [Ri ght Arm] 139/68 139/68 Blood Pressure [Ri ght Upper Arm] 113/70 Pulse Oximetry 97 94 Oxygen Delivery Me thod Room Air Room Air 02/12/24 23:00 02/13/24 03:00 02/13/24 07:00 Temperature 98.2 F 97.1 F L 98.1 F Pulse Rate [Pulse Oximeter] 74 71 64 Respiratory Rate 16 16 18 Blood Pressure [Ri ght Arm] 127/70 126/68 127/70 Blood Pressure [Ri ght Upper Arm] Pulse Oximetry 97 96 97 Oxygen Delivery Me thod Room Air Room Air Room Air 02/13/24 07:00 02/13/24 11:00 Temperature 97.9 F Pulse Rate [Pulse Oximeter] 64 67 Respiratory Rate 18 16 Blood Pressure [Ri ght Arm] 115/61 Blood Pressure [Ri ght Upper Arm] Pulse Oximetry 95 Oxygen Delivery Me thod Room Air Documenting provider has reviewed patient's vital signs: yes DS: Data Data Completed and Pending Labs on day of discharge: Labs from last 24 hours 02/13/24 02/13/24 02/12/24 10:56 05:34 16:24 WBC 11.73 H 11.76 H RBC 3.75 L 4.14 L Hgb 11.1 L 12.3 L Hct 35.4 L 39.2 MCV 94 95 MCH 30 30 MCHC 31 L 31 L RDW Coeff of Javid 16.2 H 16.4 H Plt Count 234 253 Neut % (Auto) 75.7 H 69.1 Lymph % (Auto) 14.4 L 16.1 L [place] % (Auto) 9.5 13.4 H Eos % (Auto) 0.1 0.9 Baso % (Auto) 0.1 0.1 Neut # (Auto) 8.90 H 8.10 H Lymph # (Auto) 1.70 1.90 [place] # (Auto) 1.10 H 1.60 H Eos # (Auto) 0.00 0.10 Baso # (Auto) 0.00 0.00 Abs Immat Gran (auto) 0.00 0.00 Imm/Tot Granulo (auto) 0.2 0.4 ESR 82 H Sodium 137 136 Potassium 3.8 4.6 Chloride 99 95 L Carbon Dioxide 26 29 Anion Gap 12 12 BUN 17 16 Creatinine 0.9 1.0 Estimated Creat Clear 82.20 82.20 Estimated GFR 93 82 Glucose 248 H 266 H Calcium 9.6 10.2 Total Bilirubin 1.0 AST 22 ALT 10 Alkaline Phosphatase 98 Total Creatine Kinase 54 C-Reactive Protein 14.3 H 8.7 H Total Protein 9.0 H Albumin 4.7 Urine Color Dark yellow Urine Appearance Clear Urine pH 6.0 Ur Specific [place] >= 1.030 Urine Protein 2+ A Urine Glucose (UA) 2+ A Urine Ketones Negative Urine Blood Negative Urine Nitrite Negative Urine Bilirubin Negative Urine Urobilinogen 2.0 A Ur Leukocyte Esterase Negative Urine RBC 0-2 Urine WBC 0-2 Ur Squamous Epith Cells Few Urine Bacteria None Urine Mucus Few A Imaging CT cervical spine: Radiologist's impression: INDICATION: left neck pain, goes into left head, pain with movement. TECHNIQUE: CT cervical spine without contrast. COMPARISON: None. FINDINGS: Vertebrae: Alignment is normal. Straightened cervical lordosis. There are no fractures or suspicious bony lesions. Discs and facet joints: There are degenerative disc changes most severe at C5-6 and C6-7 with bulky bridging anterior osteophytosis. There are multilevel degenerative changes in the facets. Extraspinal findings: Paraspinous soft tissues are unremarkable. IMPRESSION: 1. No sign of acute injury. 2. Multilevel degenerative spondylosis. CT scan - head: Radiologist's impression: INDICATION: Left-sided head pain. TECHNIQUE: Head CT without contrast. COMPARISON: None. FINDINGS: CSF spaces: [id number] diffuse parenchymal volume loss with commensurate ex vacuo dilatation of the ventricles and sulci. Brain parenchyma and extra-axial spaces: There are nonspecific low attenuation white matter changes consistent with chronic microvascular disease. No sign of mass, hemorrhage, or midline shift. Skull base and calvarium: The visualized paranasal sinuses and mastoid air cells demonstrate no acute or significant findings. The visualized orbits are grossly unremarkable. No skull fractures. IMPRESSION: No acute findings. Discharge Plan Discharge Disposition: Home, Self-Care Date of Admission: 02/12/24 18:10 Attending Provider on Discharge: Feroz Estrada Primary Care Provider: Leyla Duran Condition: Stable Anticipated Discharge Date/Time: 02/13/24 11:55 Discharge Medications: New glipizide 5 mg Tablet Extended Release 24hr 5 mg PO DAILYWM Qty: 30 0RF metformin 500 mg Tablet Extended Release 24 Hr 1,000 mg PO DAILY Qty: 60 0RF prednisone 5 mg tablet 15 mg PO DAILY Qty: 90 0RF Continued cyanocobalamin (vitamin B-12) 1,000 mcg tablet 1,000 mcg PO DAILY acyclovir 400 mg tablet 400 mg PO BID omeprazole 40 mg capsule,delayed release(DR/EC) 40 mg PO DAILY amlodipine 10 mg tablet 10 mg PO DAILY furosemide 20 mg tablet 20 mg PO QAM propranolol 120 mg capsule,extended release 24 hr 120 mg PO DAILY carbidopa-levodopa 25-100 mg tablet 2 tab PO QID escitalopram oxalate 10 mg tablet 10 mg PO DAILY rosuvastatin 20 mg tablet 20 mg PO QPM bupropion HCl 300 mg tablet extended release 24 hr 300 mg PO DAILY gabapentin 100 mg capsule 100 mg PO .1-2X DAILY diclofenac sodium 1 % gel 2 g topical QID PRN aspirin [Aspirin Childrens] 81 mg tablet,chewable 81 mg PO DAILY Discharge Orders: Discharge Order (Routine); Ordered 02/13/24 Ordered By: Feroz Estrada Patient Education: Glipizide (By mouth), Prednisone (By mouth), Metformin (By mouth), Polymyalgia Rheumatica (DC), Type 2 Diabetes Management for Adults (DC) Additional Instructions: Check your blood sugar twice a day and as needed for symptoms of low sugar or high sugar. Activity Level: No Restrictions Discharge Diet: Diabetic Follow Up Appointments: Leyla Duran NP-C [Primary Care Provider] - 02/17/24 1:20 pm ([facility] for follow up for recheck of neck pain and diabetes, check sed rate) Forms: [employer] Info Instructions
--- NOTE | 2024-02-13 14:59 | PC.NURSE ---
End of shift-- Very pleasant and cooperative, alert and oriented patient discharged to home via wheelchair with at approximately 1330. VSS and pt is afebrile. SPO2 maintained >90% on RA. Pt continues to c/o pain in back of neck, but stated that it is improved. Discharge education was provided including diagnosis info including extensive diabetes education, symptoms to report, and follow up plan. All questions answered.
== END 2024-02-13 13:30 | disposition home or self-care (01) ==
LOC: ED 17:51 → MEDSURG 18:10
PROVIDERS: Admitting Provider Family Medicine; Emergency Provider Family Medicine; PCP Nurse Practitioner Adult Health; Visit Provider Family Medicine
DX: M43.6 Torticollis (principal); E11.9 Type 2 diabetes mellitus without complications; G20.A1 Parkinson's disease without dyskinesia, without mention of fluctuations; R63.0 Anorexia; M50.30 Other cervical disc degeneration, unspecified cervical region; I10 Essential (primary) hypertension; I25.10 Atherosclerotic heart disease of native coronary artery without angina pectoris; E78.5 Hyperlipidemia, unspecified; K21.9 Gastro-esophageal reflux disease without esophagitis; F10.90 Alcohol use, unspecified, uncomplicated; G47.30 Sleep apnea, unspecified; F32.A Depression, unspecified; M40.40 Postural lordosis, site unspecified; Z72.0 Tobacco use; Z79.82 Long term (current) use of aspirin; Z98.890 Other specified postprocedural states; R68.84 Jaw pain
CPT/HCPCS: 36415; 70450; 72125; 80048; 80053; 81001; 81003; 82550; 82962; 85025; 85651; 86140; 96372; 99284; 99285; A9270; G0378; J7512